=== PATIENT | male | born 1955 | race Caucasian/White ===

== ENCOUNTER 2021-12-01 17:32 | Emergency (ER) | payer BC ==
[~2021-12-01] VITALS: Ht 175.3 cm; Wt 75.7 kg
--- NOTE | 2021-12-01 17:32 | NUR ---
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 PT IS AAOX4, NOT IN RESPIRATORY DISTRESS, HOOKED TO SITE IDENTIFICATION SPECIALIST, KEPT RESTED AND COMFORTABLE. WILL CONTINUE TO MONITOR.
--- NOTE | 2021-12-01 17:37 | NUR ---
SEEN AND EXAMINED BY .
--- NOTE | 2021-12-01 17:51 | NUR ---
CLAIM SPECIALIST AT BEDSIDE FOR XRAY.
--- NOTE | 2021-12-01 17:58 | NUR ---
BLOOD DRAWN AND SENT TO LAB.
[2021-12-01] MEDS ORDERED: IV NS 0.9% 1,000 ML BAG IV ONE (18:00)
--- NOTE | 2021-12-01 18:12 | NUR ---
PT IS BACK FROM THE CT SCAN.
[2021-12-01] MEDS ORDERED: CYAN-51 PO (18:23)
[2021-12-01] MEDS ORDERED: CHOL100043 PO (18:23)
[2021-12-01] MEDS ORDERED: ASPI-1420 PO (18:23)
[2021-12-01] MEDS ORDERED: LEVO25TA9 PO (18:23)
[2021-12-01] MEDS ORDERED: SIMV10TA98 PO (18:23)
[2021-12-01] MEDS ORDERED: LOSA50TA39 PO (18:23)
[2021-12-01] MEDS ORDERED: AMLO2.5T4 PO (18:23)
[2021-12-01 19:18] LABS: CALCIUM, SERUM 8.6 mg/dL (8.5-10.1); CREATININE 1.2 mg/dL (0.6-1.3); POTASSIUM 3.6 mmol/L (3.5-5.1)
[2021-12-01 19:24] LABS: ALBUMIN 3.7 g/dL (3.4-5.0); BILIRUBIN,DIRECT 0.1 mg/dL (0.0-0.2); BILIRUBIN,TOTAL 0.5 mg/dL (0.2-1.0); TOTAL PROTEIN, SERUM 7.3 g/dL (6.4-8.2)
[2021-12-01 19:50] LABS: BASOPHILS % (AUTO) 0.3 % (0.0-2.0); EOSINOPHILS % (AUTO) 3.4 % (0.0-6.0); HEMATOCRIT 39 % (39-51); HEMOGLOBIN 12.8 g/dL (13.5-17.5); LYMPHOCYTES # (AUTO) 3.2 K/uL (0.8-4.8); LYMPHOCYTES % (AUTO) 33.5 % (20.0-44.0); MEAN CORPUSCULAR HGB CONC 33 g/dl (31.0-36.0); MEAN CORPUSCULAR VOLUME 88 fL (80-96); MONOCYTES # (AUTO) 0.7 K/uL (0.1-1.30); MONOCYTES % (AUTO) 7.1 % (2.0-12.0); NEUTROPHILS # (AUTO) 5.3 K/uL (1.8-8.9); NEUTROPHILS % (AUTO) 55.7 % (43.0-81.0); PLATELET COUNT (AUTO) 248 K/uL (150-450); RED BLOOD CELL COUNT(AUTO) 4.45 MIL/uL (4.5-6.0); WHITE BLOOD COUNT (AUTO) 9.5 K/uL (4.3-11.0)
--- NOTE | 2021-12-01 20:04 | NUR ---
Patient discharged to home in stable condition. Written and verbal after care instructions given. Patient verbalizes understanding of instruction. IV line removed and patient ambulated out of ER with steady gait.
[2021-12-01 20:06] VITALS: BP 132/82
== END 2021-12-01 20:06 | disposition home or self-care (01) ==
LOC: ER 17:34
DX: R55 Syncope and collapse (principal); I10 Essential (primary) hypertension; E78.00 Pure hypercholesterolemia, unspecified; Z79.82 Long term (current) use of aspirin; Z79.899 Other long term (current) drug therapy
CPT/HCPCS: 36415; 70450; 71045; 80048; 80076; 82962; 85025; 93005; 96360; 99285; J7030